=== PATIENT | female | born 1970 | race Caucasian/White ===

== ENCOUNTER 2024-01-29 12:51 | Emergency (ER) | payer OTHER ==
[~2024-01-29] VITALS: Ht 157.5 cm; Wt 38.5 kg
[2024-01-29 12:55] VITALS: BP 189/99
[2024-01-29] MEDS ORDERED: NORCO 325 MG-101 TAB PO (13:07)
== END 2024-01-29 13:36 | disposition home or self-care (01) ==
LOC: ED 12:51
DX: F11.93 Opioid use, unspecified with withdrawal (principal); R03.0 Elevated blood-pressure reading, without diagnosis of hypertension; R00.0 Tachycardia, unspecified; G89.29 Other chronic pain; M54.50 Low back pain, unspecified